=== PATIENT | female | born 1995 | race Caucasian/White ===

== ENCOUNTER 2018-05-05 14:50 | Inpatient (IN) | payer OTHER ==
[2018-05-05] MEDS: LACTATED RINGER'S 1,000 ML IV ×2 (16:13→23:41)
[2018-05-05 17:02] LABS: ADD MAN DIFF? NO
[2018-05-05 17:04] LABS: ABNORMAL IP MESSAGE 1; BASOPHILS % 0.3 % (0.0-2.0); EOSINOPHILS % 0.1 % (0.0-7.0); HEMATOCRIT 40.6 % (37.0-47.0); HEMOGLOBIN 13.6 g/dl (12.0-16.0); LYMPHOCYTES # 2.3 10^3/ul (0.8-2.9); LYMPHOCYTES % 23.9 % (15.0-51.0); MEAN CORPUSCULAR HEMOGLOBIN 29.4 pg (29.0-33.0); MEAN CORPUSCULAR HGB CONC 33.5 g/dl (32.0-37.0); MEAN CORPUSCULAR VOLUME 87.9 fl (82.0-101.0); MONOCYTE # 0.7 10^3/ul (0.3-0.9); NEUTROPHIL # 6.5 10^3/ul (1.6-7.5); NEUTROPHILS % 68.4 % (39.0-77.0); PLATELET COUNT 175 10^3/UL (140-415); RED BLOOD COUNT 4.62 10^6/ul (4.20-5.40); RED CELL DISTRIBUTION WIDTH 12.7 % (11.5-14.5)
[2018-05-05 17:04] LABS: WHITE BLOOD COUNT 9.4 10^3/ul (4.8-10.8)
[2018-05-05 17:20] LABS: MEAN PLATELET VOLUME 14.3 fl (7.4-10.4); POSITIVE DIFF @See below
[2018-05-05 17:36] LABS: ADD UMIC YES; UR ASCORBIC ACID NEGATIVE (NEGATIVE); UR BACTERIA MANY /HPF (NONE SEEN); UR BILIRUBIN (Dip) NEGATIVE (NEGATIVE); UR BLOOD (Dip) 2+ mg/dL (NEGATIVE); UR CLARITY SLIGHTLY CLOUDY (CLEAR); UR COLOR YELLOW (YELLOW); UR GLUCOSE (Dip) NEGATIVE (NEGATIVE); UR KETONES (Dip) TRACE mg/dL (NEGATIVE); UR LEUKOCYTE ESTERASE (Dip) 1+ Leu/ul (NEGATIVE); UR NITRITE (Dip) POSITIVE (NEGATIVE); UR RBC 11 /HPF (0-5); UR SPECIFIC GRAVITY (Dip) 1.023 (1.003-1.030); UR SQUAMOUS EPITHELIAL CELL FEW /HPF (FEW); UR TOTAL PROTEIN (Dip) 2+ mg/dl (NEGATIVE); UR UROBILINOGEN (Dip) NEGATIVE (NEGATIVE); UR WBC 44 /HPF (0-5)
[2018-05-05 17:47] LABS: AMPHETAMINE/METHAMPHETAMINE Negative (NEGATIVE); BARBITURATES Negative (NEGATIVE); BENZODIAZEPINES Negative (NEGATIVE); CANNABINOIDS Negative (NEGATIVE); COCAINE Negative (NEGATIVE); OPIATES Negative (NEGATIVE)
[2018-05-05 17:52] LABS: HEPATITIS B SURFACE ANTIGEN NEGATIVE (NEGATIVE)
[2018-05-05 17:55] LABS: RUPTURE FETAL MEMBRANES NEGATIVE (NEGATIVE)
[2018-05-05 18:01] LABS: HIV 1&2 ANTIBODY NEGATIVE (NEGATIVE)
[2018-05-05 18:11] LABS: ANISOCYTOSIS 1+ (0-0); BAND NEUTROPHILS % (M) 1 % (0-4); GIANT THROMBO% (M) 5 % (0-0); LYMPHOCYTES #M 2.7 10^3/ul (0.8-2.9); LYMPHOCYTES % (M) 29 % (15-51); MICROCYTOSIS 1+ (0-0); MONOCYTES % (M) 11 % (0-11); PLATELET ESTIMATE NORMAL; REACTIVE LYMPHOCYTES% (M) 1 % (0-0); SEG NEUT #M 5.5 10^3/ul (1.6-7.5); SEGMENTED NEUTROPHILS (M) % 58 % (39-77); SMUDGE%M 3 % (0-0)
[2018-05-05 20:03] LABS: RAPID PLASMA REAGIN NONREACTIVE (NR)
[2018-05-05] MEDS ORDERED: OXYTOCIN 30 UNITS/LR 500 ML IV (20:30)
[2018-05-05] MEDS ORDERED: CARBOPROST 250 MCG INJ IM (20:30)
[2018-05-05] MEDS ORDERED: MISOPROSTOL 200 MCG TAB PR (20:30)
[2018-05-05] MEDS ORDERED: METHYLERGONOVINE 0.2 MG INJ IM (20:30)
[2018-05-05 21:19] LABS: INR 0.86; PARTIAL THROMBOPLASTIN TIME 29.3 Sec (23.0-35.0); PROTIME 11.8 Sec (11.9-14.9); PT RATIO 0.9
[2018-05-05] MEDS: CITRIC ACID/NA CITRATE 30 ML CUP PO (23:41)
[2018-05-05] MEDS: CEFAZOLIN 2 GM/50 ML (PMX) 50 ML IVPB (23:41)
[2018-05-06] MEDS ORDERED: morphine SULFATE/PF (10 MG/10 ML) INJ (00:14)
[2018-05-06] MEDS ORDERED: METOCLOPRAMIDE 10 MG INJ (00:14)
[2018-05-06] MEDS ORDERED: ONDANSETRON 4 MG INJ (00:14)
[2018-05-06] MEDS ORDERED: KETOROLAC 30 MG INJ (00:14)
[2018-05-06] MEDS: OXYTOCIN 30 UNITS/LR 500 ML IV (02:06)
[2018-05-06] MEDS ORDERED: PROPOFOL 40 ML (02:06)
[2018-05-06] MEDS: DIPHENHYDRAMINE 50 MG INJ IV (02:27)
[2018-05-06] MEDS ORDERED: ONDANSETRON 4 MG INJ IV ×2 (02:30)
[2018-05-06] MEDS ORDERED: morphine (1 MG/ML) 10ML SYRINGE IV ×3 (02:30)
[2018-05-06] MEDS ORDERED: morphine 2 MG INJ IV ×2 (02:30)
[2018-05-06] MEDS ORDERED: NALOXONE (0.4 MG/ML) INJ IV (02:30)
[2018-05-06] MEDS ORDERED: DIPHENHYDRAMINE 50 MG INJ IV (02:30)
[2018-05-06] MEDS ORDERED: KETOROLAC 30 MG INJ IV (02:30)
[2018-05-06] MEDS: morphine 2 MG INJ IV (03:53)
[2018-05-06 04:37] LABS: AADO2 Arterial 330.9 mmHg (7.0-24.0); Allen Test ACCEPTAB; Arterial Base Excess -4.4 mmol/L (-3.0-3); Arterial COHb 0.2 % (0.0-3.0); Arterial Fraction of Oxyhgb 93.3 % (93.0-99.0); Arterial HCO3 19.3 mmol/L (22.0-26.0); Arterial MetHb 0.5 % (0.0-1.5); Arterial Total Hemglobin 14.8 g/dl (12.0-18.0); Arterial pCO2 32.2 mmhg (35-45); MODE MASK - SIMPLE; Site Right Radial
[2018-05-06] MEDS ORDERED: LORAZEPAM 2 MG INJ (05:15)
[2018-05-06] MEDS: LACTATED RINGER'S 1,000 ML IV (05:32)
[2018-05-06] MEDS ORDERED: METOPROLOL 5 MG INJ (05:38)
[2018-05-06] MEDS: LORAZEPAM 2 MG INJ IV (05:44)
[2018-05-06] MEDS: METOPROLOL 5 MG INJ IV (05:45)
[2018-05-06] MEDS: SOD CHLORIDE 0.9% 100 ML (06:20)
[2018-05-06] MEDS: IOHEXOL 300MG/ML 150 ML BTL (06:20)
[2018-05-06] MEDS ORDERED: PROPOFOL 200 MG INJ (07:00)
[2018-05-06] MEDS ORDERED: EPHEDrine SULFATE 50 MG/5 ML SYG (07:00)
[2018-05-06] MEDS: AMPICILLIN/SULB 3 GM/NS (PMX) 100 ML IVPB (07:58)
[2018-05-06 08:38] LABS: ADD MAN DIFF? NO
[2018-05-06 08:43] LABS: WHITE BLOOD COUNT 9.2 10^3/ul (4.8-10.8)
[2018-05-06 08:43] LABS: ABNORMAL IP MESSAGE 1; BASOPHILS % 0.2 % (0.0-2.0); HEMATOCRIT 35.8 % (37.0-47.0); LYMPHOCYTES # 0.9 10^3/ul (0.8-2.9); LYMPHOCYTES % 9.7 % (15.0-51.0); MEAN CORPUSCULAR HEMOGLOBIN 29.8 pg (29.0-33.0); MEAN CORPUSCULAR HGB CONC 33.5 g/dl (32.0-37.0); MEAN CORPUSCULAR VOLUME 88.8 fl (82.0-101.0); MEAN PLATELET VOLUME 13.6 fl (7.4-10.4); MONOCYTE # 0.7 10^3/ul (0.3-0.9); MONOCYTES % 7.1 % (0.0-11.0); NEUTROPHIL # 7.6 10^3/ul (1.6-7.5); NEUTROPHILS % 82.8 % (39.0-77.0); PLATELET COUNT 130 10^3/UL (140-415); RED BLOOD COUNT 4.03 10^6/ul (4.20-5.40); RED CELL DISTRIBUTION WIDTH 12.7 % (11.5-14.5)
[2018-05-06 08:52] LABS: POSITIVE DIFF @See below
[2018-05-06 09:22] LABS: ALANINE AMINOTRANSFERASE 19 IU/L (13-69); ALBUMIN 2.5 g/dl (3.3-4.9); ALBUMIN/GLOBULIN RATIO 0.96; ALKALINE PHOSPHATASE 116 IU/L (42-121); ANION GAP 9 (5-13); ASPARTATE AMINO TRANSFERASE 28 IU/L (15-46); BILIRUBIN,INDIRECT 0.5 mg/dl (0-1.1); BILIRUBIN,TOTAL 0.5 mg/dl (0.2-1.3); BLOOD UREA NITROGEN 11 mg/dl (7-20); CALCIUM 8.3 mg/dl (8.4-10.2); CARBON DIOXIDE 21 mmol/L (21-31); CHLORIDE 108 mmol/L (97-110); CREATININE 0.78 mg/dl (0.44-1.00); Estimated GFR > 60 mL/min (>60); GLUCOSE 93 mg/dl (70-220); POTASSIUM 3.5 mmol/L (3.5-5.1); SODIUM 138 mmol/L (135-144); TOTAL PROTEIN 5.1 g/dl (6.1-8.1)
[2018-05-06] MEDS: FUROSEMIDE 40 MG INJ IV (11:14)
[2018-05-06] MEDS: CEFTRIAXONE 1 GM/50 ML (PMX) 50 ML IVPB (14:22)
[2018-05-07 05:17] LABS: ADD MAN DIFF? NO
[2018-05-07 05:27] LABS: ABNORMAL IP MESSAGE 1; BASOPHIL # 0.1 10^3/ul (0.0-0.1); BASOPHILS % 0.3 % (0.0-2.0); EOSINOPHILS % 0.2 % (0.0-7.0); HEMATOCRIT 30.1 % (37.0-47.0); HEMOGLOBIN 10.1 g/dl (12.0-16.0); LYMPHOCYTES % 10.2 % (15.0-51.0); MEAN CORPUSCULAR HEMOGLOBIN 30.3 pg (29.0-33.0); MEAN CORPUSCULAR HGB CONC 33.6 g/dl (32.0-37.0); MEAN CORPUSCULAR VOLUME 90.4 fl (82.0-101.0); MONOCYTE # 1.1 10^3/ul (0.3-0.9); MONOCYTES % 5.5 % (0.0-11.0); PLATELET COUNT 145 10^3/UL (140-415); RED BLOOD COUNT 3.33 10^6/ul (4.20-5.40); RED CELL DISTRIBUTION WIDTH 13.1 % (11.5-14.5)
[2018-05-07 05:27] LABS: WHITE BLOOD COUNT 19.3 10^3/ul (4.8-10.8)
[2018-05-07 05:32] LABS: POSITIVE DIFF @See below
[2018-05-07] MEDS: morphine 2 MG INJ IV ×2 (05:49→12:45)
[2018-05-07 05:51] LABS: ANION GAP 6 (5-13); BLOOD UREA NITROGEN 10 mg/dl (7-20); CALCIUM 8.2 mg/dl (8.4-10.2); CARBON DIOXIDE 27 mmol/L (21-31); CHLORIDE 106 mmol/L (97-110); CREATININE 0.76 mg/dl (0.44-1.00); Estimated GFR > 60 mL/min (>60); GLUCOSE 90 mg/dl (70-220); MAGNESIUM 1.5 mg/dl (1.7-2.5); POTASSIUM 4.2 mmol/L (3.5-5.1); SODIUM 139 mmol/L (135-144)
[2018-05-07] MEDS: MAGNESIUM SULFATE 3 GM in DEXTROSE 5% 100 ML IVPB (11:26)
[2018-05-07 11:36] LABS: RUBELLA ANTIBODY - IGG 1.95 index
[2018-05-07] MEDS: FUROSEMIDE 40 MG INJ IV (12:32)
[2018-05-07 13:29] LABS: ADD UMIC YES; UR ASCORBIC ACID NEGATIVE (NEGATIVE); UR BACTERIA FEW /HPF (NONE SEEN); UR BILIRUBIN (Dip) NEGATIVE (NEGATIVE); UR BLOOD (Dip) 2+ mg/dL (NEGATIVE); UR CLARITY CLEAR (CLEAR); UR COLOR YELLOW (YELLOW); UR GLUCOSE (Dip) NEGATIVE (NEGATIVE); UR KETONES (Dip) TRACE mg/dL (NEGATIVE); UR LEUKOCYTE ESTERASE (Dip) TRACE Leu/ul (NEGATIVE); UR MUCUS FEW /HPF (NONE SEEN); UR NITRITE (Dip) NEGATIVE (NEGATIVE); UR RBC 1 /HPF (0-5); UR SPECIFIC GRAVITY (Dip) 1.006 (1.003-1.030); UR TOTAL PROTEIN (Dip) NEGATIVE (NEGATIVE); UR UROBILINOGEN (Dip) NEGATIVE (NEGATIVE); UR WBC 1 /HPF (0-5)
[2018-05-07] MEDS: CEFTRIAXONE 1 GM/50 ML (PMX) 50 ML IVPB (14:49)
[2018-05-07] MEDS: OXYCODONE/ACETAMINOPHEN (5/325) TAB PO ×2 (15:04→19:42)
[2018-05-08] MEDS: IBUPROFEN 600 MG TAB PO ×2 (05:42→22:05)
[2018-05-08] MEDS: FUROSEMIDE 40 MG INJ IV (09:28)
[2018-05-08] MEDS: CEFTRIAXONE 1 GM/50 ML (PMX) 50 ML IVPB (13:33)
[2018-05-09] MEDS: IBUPROFEN 600 MG TAB PO ×2 (05:34→12:12)
[2018-05-09] MEDS: FUROSEMIDE 40 MG INJ IV (09:00)
[2018-05-10 11:46] LABS: RUBELLA ANTIBODY - IGM <20.00 AU/mL
== END 2018-05-09 13:15 | disposition home or self-care (01) | DRG 786 ==
LOC: OBT 14:50 → ICU 05-07 10:58 → MS1 05-08 01:10 → L-D 14:50 → ICU 05-06 06:24 → OBT 19:50 → L-D 19:50
PROC: 10D00Z1 Extraction of Products of Conception, Low, Open Approach (ICD-10-PCS; principal; 2018-05-06)
DX: O34.211 Maternal care for low transverse scar from previous cesarean delivery (principal); J69.0 Pneumonitis due to inhalation of food and vomit; J96.01 Acute respiratory failure with hypoxia; O90.3 Peripartum cardiomyopathy; O86.20 Urinary tract infection following delivery, unspecified; Z3A.39 39 weeks gestation of pregnancy; Z37.0 Single live birth; O09.33 Supervision of pregnancy with insufficient antenatal care, third trimester; O99.53 Diseases of the respiratory system complicating the puerperium
CPT/HCPCS: 36415; 36600; 71045; 71275; 76815; 76818; 80048; 80053; 80307; 81001; 82803; 83735; 84112; 85025; 85610; 85730; 86592; 86703; 86762; 86885; 86900; 86901; 87040; 87081; 87086; 87340; 90686; 93005; 93306; 96360; 96361; 99464

== ENCOUNTER 2018-11-12 07:48 | Emergency (ER) | payer OTHER ==
[2018-11-12] MEDS: IBUPROFEN 600 MG TAB PO (08:13)
== END 2018-11-12 08:17 | disposition home or self-care (01) ==
LOC: FTE 07:48
DX: K08.89 Other specified disorders of teeth and supporting structures (principal); R59.0 Localized enlarged lymph nodes
CPT/HCPCS: 99283; Z7610

== ENCOUNTER 2019-01-08 22:15 | Emergency (ER) | payer OTHER ==
[2019-01-08 23:30] LABS: ADD MAN DIFF? NO
[2019-01-08] MEDS: KETOROLAC 30 MG INJ IV (23:31)
[2019-01-08 23:32] LABS: BASOPHILS % 0.1 % (0.0-2.0); EOSINOPHILS % 0.1 % (0.0-7.0); HEMATOCRIT 43.1 % (37.0-47.0); HEMOGLOBIN 14.2 g/dl (12.0-16.0); LYMPHOCYTES # 0.9 10^3/ul (0.8-2.9); LYMPHOCYTES % 6.7 % (15.0-51.0); MEAN CORPUSCULAR HEMOGLOBIN 28.3 pg (29.0-33.0); MEAN CORPUSCULAR HGB CONC 32.9 g/dl (32.0-37.0); MONOCYTE # 0.5 10^3/ul (0.3-0.9); MONOCYTES % 3.3 % (0.0-11.0); NEUTROPHIL # 12.5 10^3/ul (1.6-7.5); NEUTROPHILS % 89.5 % (39.0-77.0); PLATELET COUNT 261 10^3/UL (140-415); RED BLOOD COUNT 5.01 10^6/ul (4.20-5.40); RED CELL DISTRIBUTION WIDTH 12.8 % (11.5-14.5)
[2019-01-08] MEDS: ACETAMINOPHEN 325 MG TAB PO (23:32)
[2019-01-08] MEDS: ONDANSETRON 4 MG INJ IV (23:32)
[2019-01-08] MEDS: SOD CHLORIDE 0.9% 500 ML IV (23:32)
[2019-01-08 23:41] LABS: ADD UMIC YES; UR ASCORBIC ACID NEGATIVE (NEGATIVE); UR BACTERIA FEW /HPF (NONE SEEN); UR BILIRUBIN (Dip) NEGATIVE (NEGATIVE); UR BLOOD (Dip) 3+ mg/dL (NEGATIVE); UR CLARITY SLIGHTLY CLOUDY (CLEAR); UR COLOR YELLOW (YELLOW); UR GLUCOSE (Dip) NEGATIVE (NEGATIVE); UR KETONES (Dip) 1+ mg/dL (NEGATIVE); UR LEUKOCYTE ESTERASE (Dip) NEGATIVE Leu/ul (NEGATIVE); UR MUCUS FEW /HPF (NONE SEEN); UR NITRITE (Dip) NEGATIVE (NEGATIVE); UR RBC 36 /HPF (0-5); UR SPECIFIC GRAVITY (Dip) 1.028 (1.003-1.030); UR SQUAMOUS EPITHELIAL CELL FEW /HPF (FEW); UR TOTAL PROTEIN (Dip) 2+ mg/dl (NEGATIVE); UR UROBILINOGEN (Dip) NEGATIVE (NEGATIVE); UR WBC 3 /HPF (0-5)
[2019-01-08 23:48] LABS: ALANINE AMINOTRANSFERASE 25 IU/L (13-69); ALBUMIN 4.8 g/dl (3.3-4.9); ALBUMIN/GLOBULIN RATIO 1.33; ALKALINE PHOSPHATASE 108 IU/L (42-121); ANION GAP 11 (5-13); ASPARTATE AMINO TRANSFERASE 25 IU/L (15-46); BILIRUBIN,INDIRECT 0.7 mg/dl (0-1.1); BILIRUBIN,TOTAL 0.7 mg/dl (0.2-1.3); BLOOD UREA NITROGEN 12 mg/dl (7-20); CALCIUM 9.5 mg/dl (8.4-10.2); CARBON DIOXIDE 25 mmol/L (21-31); CHLORIDE 102 mmol/L (97-110); CREATININE 0.68 mg/dl (0.44-1.00); Estimated GFR > 60 mL/min (>60); GLUCOSE 116 mg/dl (70-220); LIPASE 39 U/L (23-300); POTASSIUM 3.5 mmol/L (3.5-5.1); SODIUM 138 mmol/L (135-144); TOTAL PROTEIN 8.4 g/dl (6.1-8.1)
== END 2019-01-09 00:35 | disposition home or self-care (01) ==
LOC: FTE 01-09 00:35
DX: R50.9 Fever, unspecified (principal); R11.2 Nausea with vomiting, unspecified
CPT/HCPCS: 36415; 80053; 81001; 81025; 83690; 85025; 87086; 96374; 96375; 99284-25